=== PATIENT | male | born 1980 | race Hispanic/Latino ===

== ENCOUNTER 2022-01-03 02:58 | Emergency (ER) | payer SELFPAY ==
[2022-01-03] MEDS ORDERED: Ibuprofen 200 MG TAB ONE (03:25)
[2022-01-03] MEDS ORDERED: Ondansetron ODT 4 MG TAB ONE (03:35)
== END 2022-01-03 03:40 | disposition home or self-care (01) ==
LOC: ERS 02:58
DX: U07.1 COVID-19 (principal); J06.9 Acute upper respiratory infection, unspecified
CPT/HCPCS: 99283; Q0162; U0003; U0005

== ENCOUNTER 2023-08-07 22:09 | Emergency (ER) | payer SELFPAY ==
[2023-08-07] MEDS ORDERED: Acetaminophen 500 MG TAB ONE (23:37)
[2023-08-08 00:20] LABS: #Basophils 0.1 thou/uL (0.0-0.2); #Eosinphils 0.3 thou/uL (0.0-0.7); #Monocytes 0.7 thou/uL (0.11-0.59); #Neutrophils 4.5 thou/uL (1.40-6.50); %Basophils 0.7 % (0.0-1.0); %Eosinophils 3.8 % (0.0-10.0); %Lymphocytes 23.2 % (21.0-51.0); %Monocytes 9.2 % (0.0-10.0); %Neutrophils 62.8 % (42.0-75.0); Hematocrit 42.9 % (42.0-52.0); Hemoglobin 14.9 g/dL (14.0-18.0); Mean Corpuscular HGB CONC 34.7 g/dL (32.0-36.0); Mean Corpuscular Hemoglobin 29.4 pg (27.0-31.0); Mean Corpuscular Volume 84.6 fl (78.0-98.0); Mean Platelet Volume 11.3 fL (7.4-10.4); Platelet Count 226 10x3/uL (130-400); RBC Distribution Width 12.2 % (11.5-14.5); Red Blood Cell (RBC) Count 5.07 mill/uL (4.70-6.10); White Blood Cell (WBC) Count 7.2 10x3/uL (4.8-10.8)
[2023-08-08 00:45] LABS: ALT (SGPT) 94 U/L (8-55); AST (SGOT) 32 U/L (5-34); Albumin 4.4 g/dL (3.5-5.0); Alkaline Phosphatase 71 U/L (40-110); Anion Gap 12 mmol/L (10-20); BUN (Urea Nitrogen) 19 mg/dL (8.9-20.6); Bilirubin, Total 0.4 mg/dL (0.2-1.2); Calc. Creatinine Clearance 0 mL/min (70-130); Calcium 9.1 mg/dL (7.8-10.44); Carbon Dioxide 25 mmol/L (22-29); Chloride 103 mmol/L (98-107); Estimated GFR 73; Globulin 3.3 g/dL (2.4-3.5); Glucose 110 mg/dL (70-105); Magnesium 2.2 mg/dL (1.6-2.6); Protein, Total 7.7 g/dL (6.0-8.3); Sodium 136 mmol/L (136-145)
[2023-08-08 00:47] LABS: Troponin I Less than 0.010 ng/mL (< 0.028)
== END 2023-08-08 01:10 | disposition home or self-care (01) ==
LOC: ERS 22:09
DX: R55 Syncope and collapse (principal); I10 Essential (primary) hypertension; Z55.6 Problems related to health literacy; Z75.8 Other problems related to medical facilities and other health care; Z79.899 Other long term (current) drug therapy
CPT/HCPCS: 36415; 70450; 71045; 72125; 80053; 83735; 84484; 85025; 85379; 93005